=== PATIENT | female | born 2000 | race Caucasian/White ===

== ENCOUNTER → 2021-01-20 | Outpatient (CLI) | payer BC, OTHER | LOC: LAB 05:36 | DX: Z11.52 Encounter for screening for COVID-19 (principal) | CPT/HCPCS: 0240U ==

== ENCOUNTER → 2021-02-15 | Outpatient (CLI) | payer OTHER | LOC: EROP 19:35 | DX: R50.9 Fever, unspecified (principal); Z20.822 Contact with and (suspected) exposure to COVID-19 | CPT/HCPCS: 0240U ==

== ENCOUNTER → 2021-03-15 | Outpatient (CLI) | payer BC, OTHER | LOC: MRI 10:58 | DX: E22.1 Hyperprolactinemia (principal) | CPT/HCPCS: 70551 ==

== ENCOUNTER → 2021-04-09 | Outpatient (CLI) | payer BC, OTHER | LOC: LAB 21:56 | DX: J06.9 Acute upper respiratory infection, unspecified (principal); Z20.822 Contact with and (suspected) exposure to COVID-19 | CPT/HCPCS: 0241U ==

== ENCOUNTER 2021-08-26 02:34 | Emergency (ER) | payer BC, OTHER ==
[2021-08-26 03:02] LABS: HEMOGLOBIN 13.8 gm/dl (12.3-15.3); RED BLOOD COUNT 4.65 M/UL (4.00-5.10); WHITE BLOOD COUNT 13.7 K/UL (4.5-11.0)
[2021-08-26 03:22] LABS: BUN/CREATININE RATIO 18 (0-10)
== END 2021-08-26 05:10 | disposition home or self-care (01) ==
LOC: ER1 02:34
PROVIDERS: Emergency Medicine
DX: R51.9 Headache, unspecified (principal); Z79.899 Other long term (current) drug therapy; Z20.822 Contact with and (suspected) exposure to COVID-19
CPT/HCPCS: 70496; 70498; 80053; 82550; 82553; 82962; 83874; 84439; 84443; 84484; 84703; 85025; 93005; 99284; Q9967; U0002

== ENCOUNTER → 2021-08-28 | Outpatient (CLI) | payer BC | LOC: MRI 16:12 | DX: R51.9 Headache, unspecified (principal) | CPT/HCPCS: 70553; A9577 ==

== ENCOUNTER → 2021-11-15 | Outpatient (CLI) | payer BC | LOC: OPSV 20:34 | DX: R05.9 Cough, unspecified (principal); Z20.822 Contact with and (suspected) exposure to COVID-19 | CPT/HCPCS: U0002 ==

== ENCOUNTER → 2022-07-05 | Outpatient (CLI) | payer BC | LOC: LAB 11:22 | DX: U07.1 COVID-19 (principal) | CPT/HCPCS: U0002 ==